=== PATIENT | male | born 1960 | race Caucasian/White ===

== ENCOUNTER → 2016-10-12 | Outpatient (CLI) | payer BC, OTHER ==
[2016-10-12 09:28] LABS: MEAN CORPUSCULAR HEMOGLOBIN 33.5 pg (27.0-33.0); MEAN CORPUSCULAR VOLUME 95.8 fl (80.0-96.0); RED CELL DISTRIBUTION WIDTH 12.6 % (11.5-14.5); WHITE BLOOD COUNT 5.8 K/mm3 (4.0-10.0)
[2016-10-12 09:53] LABS: ALBUMIN 3.7 GM/DL (3.2-5.2); ALBUMIN/GLOBULIN RATIO 1.06 (1.00-1.93); ALKALINE PHOSPHATASE 90 U/L (45-117); ALT/SGPT 24 U/L (12-78); ANION GAP 7 MEQ/L (8-16); AST/SGOT 18 U/L (15-37); BLOOD UREA NITROGEN 18 MG/DL (7-18); CALCIUM LEVEL 8.1 MG/DL (8.5-10.1); CARBON DIOXIDE LEVEL 28 MEQ/L (21-32); CHLORIDE LEVEL 108 MEQ/L (98-107); CHOLESTEROL LEVEL 148 MG/DL (<200); GLOMERULAR FILTRATION RATE > 60.0 (>56); GLUCOSE, FASTING 106 MG/DL (70-105); POTASSIUM SERUM 4.3 MEQ/L (3.5-5.1); SODIUM LEVEL 143 MEQ/L (136-145); TOTAL PROTEIN 7.2 GM/DL (6.4-8.2); TRIGLYCERIDES LEVEL 84 MG/DL (<150)
--- NOTE | 2016-10-13 02:30 | REP ---
Clinical: Hypertension . Comparison: 07/30/2014 . Technique: PA and lateral. Findings: The mediastinum and cardiac silhouette are normal. The lung casey demonstrate chronic-appearing changes without acute consolidation, effusion, or pneumothorax. The skeletal structures are intact and normal. Impression: 1. No acute cardiopulmonary process. Signed by Tererll Ocasio MD 10/13/2016 02:22 A
--- NOTE | 2016-10-14 17:43 | ECGEPIP ---
Stationary ECG Study [facility] Test Date: 2016-10-12 Pat Name: ERWIN PAEZ Department: Room: - Gender: M [employer]: ERASTO : 1960 Requested By: Jany Nicole Order Number: [id number] Reading MD: Jarek John Measurements Intervals [place] Rate: 65 P: -36 GA: 181 QRS: 23 QRSD: 96 T: 2 QT: 391 QTc: 409 Interpretive Statements SINUS RHYTHM MINIMAL ST ELEVATION NOTED, CONSIDER EARLY REPOLARIZATION POSSIBLE ECTOPIC ATRIAL RHYTHM NO SIGNIFICANT CHANGES, COMPARED TO THE LAST 3 TRACINGS Electronically Signed On 10-14-2016 17:43:25 EDT by Jarek John
== END ==
LOC: M LAB 08:46
PROVIDERS: ATTEND Family Medicine
DX: R94.31 Abnormal electrocardiogram [ECG] [EKG] (principal); I10 Essential (primary) hypertension; R53.83 Other fatigue; N40.0 Benign prostatic hyperplasia without lower urinary tract symptoms

== ENCOUNTER → 2017-01-19 | Outpatient (REF) | payer OTHER ==
[2017-01-19 13:28] LABS: SPERM ABNORMAL FORMS WBC'S NOTED
[2017-01-19 13:29] LABS: IMMMOTILE SPERM CENTRIFUGED PRESENT (ABSENT); IMMOTILE SPERM PRESENT (ABSENT); MOTILE SPERM ABSENT (ABSENT); MOTILE SPERM CENTRIFUGED ABSENT (ABSENT)
== END ==
LOC: M LAB REF 13:09
PROVIDERS: ATTEND Surgery
DX: Z30.8 Encounter for other contraceptive management (principal)

== ENCOUNTER 2017-12-28 22:59 | Emergency (ER) | payer BC, OTHER, SELFPAY ==
[2017-12-28] MEDS: EPINEPHrine 1MG/10ML SYRINGE 1.5IN IV ×2 (23:04→23:08)
== END 2017-12-29 04:42 | disposition expired ==
LOC: M ED 22:59
DX: I46.9 Cardiac arrest, cause unspecified (principal); V49.9XXA Car occupant (driver) (passenger) injured in unspecified traffic accident, initial encounter; Y92.89 Other specified places as the place of occurrence of the external cause; Y93.9 Activity, unspecified; Y99.9 Unspecified external cause status
CPT/HCPCS: 92950

== ENCOUNTER → 2017-12-29 | Outpatient (REF) ==
[2017-12-29 16:02] LABS: ETHYL ALCOHOL (ETHANOL) 0.222 % (0.000-0.010)
== END ==
LOC: M LAB 11:14
DX: Z02.89 Encounter for other administrative examinations (principal)